=== PATIENT | male | born 1945 | race Caucasian/White ===

== ENCOUNTER 2022-11-10 15:56 | Emergency (ER) | payer MEDICARE, MEDICAID ==
[~2022-11-10] VITALS: Ht 190 cm; Wt 82.0 kg
--- NOTE | 2022-11-10 16:16 | ED Lower Extremity ---
General Chief Complaint: Trauma-Non Activation Stated Complaint: FALL Nursing Triage Note: SEE TRIAGE Source: patient Exam Limitations: no limitations (RACIEL DE LA GARZA APRN) History of Present Illness Date Seen by Provider: Nov 10, 2022 Time Seen by Provider: 16:03 Initial Comments 77-year-old male presents to the ED via EMS from [facility] re[facility] after a fall. States he was trying to go to the bathroom, and suddenly got weak like his body gave out and fell. Denies any dizziness prior to the fall. Denies any loss of consciousness. Denies hitting his head. States he feels okay right now except for the pain in his right hip. Denies cough, fever, chest pain, shortn ess of air, abdominal pain, nausea, vomiting, diarrhea. He states he stays at [facility] and rehab to help take care of his son who had a massive stroke, and who has begun to have behavioral issues. Location Injury Occurred: [place] (RACIEL DE LA GARZA APRN) Allergies and Home Medications Allergies Coded Allergies: No Known Drug Allergies (Unverified , 11/10/22) Patient Home Medication List Home Medication List Reviewed: Yes (RACIEL DE LA GARZA APRN) Review of Systems Constitutional: see HPI (RACIEL DE LA GARZA APRN) Past Pfdikyi-Dwbzdh-Dqutqp Hx Patient Social History Tobacco Use?: No Substance use?: No Alcohol Use?: No Pt feels they are or have been: No (RACIEL DE LA GARZA APRN) Immunizations Up To Date Influenza Vaccine Up-to-Date: Yes; Up-to-Date First/Initial COVID19 Vaccinat: YES Second COVID19 Vaccination Neeraj: YES (RACIEL DE LA GARZA APRN) Past Medical History Surgery/Hospitalization HX: STENTS HEART, A-FIB, WEAKNESS, BIPOLAR,HTN , CAD (RACIEL D ELA GARZA APRN) Physical Exam Vital Signs Vital Signs - First Documented 11/10/22 11/10/22 15:58 17:03 Pulse 55 Resp 20 B/P (MAP) 115/62 (79) Pulse Ox 97 O2 Delivery Room Air (CATRACHITO CONLEY MD) Vital Signs Capillary Refill : Less Than 3 Seconds (RACIEL DE LA GARZA APRN) Height, Weight, BMI Height: '" Weight: lbs. oz. kg; 22.00 BMI Method: General Appearance: WD/WN, no apparent distress HEENT: PERRL/EOMI Neck: supple, normal inspection Cardiovascular: no edema, no gallop, no JVD, no murmur, irregularly irregular Respiratory: lungs clear, normal breath sounds, no respiratory distress, no accessory muscle use Hips: right hip pain, right hip soft tissue tenderness Neurologic/Psychiatric: alert, normal mood/affect, oriented x 3 Skin: normal color, warm/dry (RACIEL DE LA GARZA APRN) Progress/Results/Core Measures Results/Orders Vital Signs/I&O 11/10/22 11/10/22 15:58 17:03 Pulse 55 64 Resp 20 20 B/P (MAP) 115/62 (79) 121/73 Pulse Ox 97 99 O2 Delivery Room Air (CATRACHITO CONLEY MD) Blood Pressure Mean: 79 Progress Progress Note #1: Time: 16:16 Progress Note Patient seen and evaluated, resting comfortably bed, no acute distress. Based on exam and symptoms, concern for right hip fracture. X-ray of the right hip ordered. Progress Note #2: Time: 16:52 Progress Note X-ray reviewed. Negative for acute fracture. Results discussed with patient. Will order one-time dose of [place] and discharge. Discharge instructions and return precautions provided. (RACIEL DE LA GARZA APRN) Departure Impression Primary Impression: Fall Disposition: 01 HOME, SELF-CARE Condition: Stable Departure-Patient Inst. Decision time for Depature: 16:53 (RACIEL DE LA GARZA APRN) Patient Instructions: Preventing Falls in Older Adults Add. Discharge Instructions: Your x-ray did not show a fracture of the hip. You may take Tylenol as needed for pain. We gave you a one-time dose of [place] for pain here, and may make you sleepy. Follow-up with your primary care provider. Return for worsening pain, inability to walk, or any other new, concerning, or worsening symptoms. All discharge instructions reviewed with patient and/or family. Voiced understanding. ATTENDING PHYSICIAN NOTE: I was physically present as attending physician in the emergency department during the care of this patient, but I was not directly involved in the decision making or delivery of care for this patient. (CATRACHITO CONLEY MD) RACIEL DE LA GARZA APRN Nov 10, 2022 16:16 CATRACHITO CONLEY MD Nov 14, 2022 12:40
--- NOTE | 2022-11-10 16:39 | Diagnostic Imaging Report ---
Indication: Right hip pain 2 views of the right hip show no fracture, dislocation or other acute abnormalities. IMPRESSION: Negative right hip Dictated by: Dictated on workstation # [id number]
[2022-11-10] MEDS ORDERED: HYDROcodone/APAP 5 MG/325 MG (LORTAB) TAB PO ONE (17:00)
[2022-11-10 17:03] VITALS: BP 121/73
== END 2022-11-10 17:09 | disposition home or self-care (01) ==
LOC: ER 15:57
DX: M25.551 Pain in right hip (principal); W18.30XA Fall on same level, unspecified, initial encounter
CPT/HCPCS: 73502

== ENCOUNTER 2022-11-11 11:21 | Emergency (ER) | payer MEDICARE, MEDICAID ==
[~2022-11-11] VITALS: Ht 190.5 cm; Wt 82.6 kg
[2022-11-11] MEDS ORDERED: LACTATED RINGERS 1,000 ML IV ONE (11:30)
[2022-11-11 11:50] LABS: BASOPHILS # (AUTO) 0.1 10^3/uL (0.0-0.1); BASOPHILS % (AUTO) 1 % (0-10); EOSINOPHILS # (AUTO) 0.1 10^3/uL (0.0-0.3); EOSINOPHILS % (AUTO) 1 % (0-10); HEMATOCRIT 30 % (40-54); HEMOGLOBIN 9.4 g/dL (13.3-17.7); LYMPHOCYTES # (AUTO) 1.9 10^3/uL (1.0-4.0); LYMPHOCYTES % (AUTO) 16 % (12-44); MEAN CORPUSCULAR HEMOGLOBIN 29 pg (25-34); MEAN CORPUSCULAR HGB CONC 32 g/dL (32-36); MEAN CORPUSCULAR VOLUME 91 fL (80-99); MEAN PLATELET VOLUME 11.7 fL (9.0-12.2); MONOCYTES # (AUTO) 1.7 10^3/uL (0.0-1.0); MONOCYTES % (AUTO) 14 % (0-12); NEUTROPHILS # (AUTO) 7.8 10^3/uL (1.8-7.8); NEUTROPHILS % (AUTO) 68 % (42-75); PLATELET COUNT 173 10^3/uL (130-400); WHITE BLOOD COUNT 11.6 10^3/uL (4.3-11.0)
[2022-11-11 12:07] LABS: ALBUMIN 3.1 GM/DL (3.2-4.5); CHLORIDE 110 MMOL/L (98-107); POTASSIUM 4.1 MMOL/L (3.6-5.0); SODIUM 140 MMOL/L (135-145)
[2022-11-11 12:08] LABS: CALCIUM 8.1 MG/DL (8.5-10.1)
[2022-11-11 12:09] LABS: GLUCOSE 135 MG/DL (70-105); TOTAL PROTEIN 5.9 GM/DL (6.4-8.2)
[2022-11-11 12:10] LABS: CARBON DIOXIDE 21 MMOL/L (21-32)
[2022-11-11 12:13] LABS: ALKALINE PHOSPHATASE 60 U/L (40-136); CREATININE SERUM 1.26 MG/DL (0.60-1.30); GFR ESTIMATED 58
[2022-11-11 12:14] LABS: BUN/CREATININE RATIO 17
[2022-11-11 12:16] LABS: ALANINE AMINOTRANSFERASE < 6 U/L (0-55); MAGNESIUM 2.3 MG/DL (1.6-2.4)
[2022-11-11 12:17] LABS: BILIRUBIN,URINE NEGATIVE (NEGATIVE); CLARITY,URINE CLEAR; COLOR,URINE YELLOW; GLUCOSE, URINE (UA) NEGATIVE (NEGATIVE); KETONES,URINE TRACE (NEGATIVE); LEUKOCYTE ESTERASE ,URINE NEGATIVE (NEGATIVE); NITRITE,URINE NEGATIVE (NEGATIVE); PH,URINE 5.5 (5-9); PROTEIN,URINE TRACE (NEGATIVE)
[2022-11-11 12:25] LABS: BACTERIA,URINE FEW /HPF; SQUAMOUS EPITHELIAL CELL,UR 0-2 /HPF; WBC,URINE RARE /HPF
[2022-11-11] MEDS ORDERED: NS 100 ML (IVPB) BAG IV ONE (12:30)
[2022-11-11] MEDS ORDERED: IOHEXOL 350 MG/ML 100 ML (OMNIPAQUE 350) VIAL IV ONE (12:30)
[2022-11-11] MEDS ORDERED: HOLD METFORMIN - RECEIVED CONTRAST 20 ML VIAL IV SCH (12:30)
--- NOTE | 2022-11-11 12:51 | ED General ---
General Chief Complaint: Dizziness/Syncope Stated Complaint: DIZZINESS Nursing Triage Note: PT TO ROOM 07 VIA [facility] FROM [facility] WITH C/O DIZZYNESS. Source of Information: Patient, EMS, Assisted Records, Old Records Exam Limitations: No Limitations History of Present Illness Date Seen by Provider: Nov 11, 2022 Time Seen by Provider: 11:23 Initial Comments This 77-year-old gentleman presents to the emergency room from the senior living via EMS with complaints of hypotension, lightheadedness, and syncope upon standing. He was caught during his syncopal episode by staff and therefore did not fall or sustain injury. He did have a fall yesterday resulting in right hip injury. He was seen in the emergency room yesterday and evaluated with x-ray. No fractures were identified at that time. He reports persistent pain in the right hip with now a firm swelling on the right lateral hip and buttock region. He reports difficulty walking due to the pain. correction reported diastolic blood pressures were in the 40s. Blood pressure for EMS was 119/48. Heart rate was 78, and rhythm was atrial fibrillation. correction had reported pulse rates as low as the 30s and 40s previously. Blood sugar was 139 for EMS. Rhythm is irregular on the monitor during assessment with EKG reporting ventricular trigeminy. Allergies and Home Medications Allergies Coded Allergies: No Known Drug Allergies (Unverified , 11/10/22) Patient Home Medication List Home Medication List Reviewed: Yes Review of Systems Review of Systems Constitutional: no symptoms reported EENTM: no symptoms reported Respiratory: no symptoms reported Cardiovascular: see HPI Gastrointestinal: no symptoms reported Genitourinary: no symptoms reported Musculoskeletal: see HPI Skin: no symptoms reported Psychiatric/Neurological: No Symptoms Reported Hematologic/Lymphatic: See HPI Immunological/Allergic: no symptoms reported Past Ocboysv-Zuyocz-Yhxwgc Hx Patient Social History Tobacco Use?: No Smoking Status: Never a Smoker Smokeless Tobacco Frequency: Never a User Use of E-Cig and/or Vaping dev: No Use of E-Cig and/or Vaping Cachorro: Never a User Substance use?: No Alcohol Use?: No Pt feels they are or have been: No Immunizations Up To Date First/Initial COVID19 Vaccinat: YES Second COVID19 Vaccination Neeraj: YES Past Medical History Surgery/Hospitalization HX: STENTS HEART, A-FIB, WEAKNESS, BIPOLAR,HTN , CAD Surgeries: Yes Coronary Stent Respiratory: Yes Cardiac: Yes Atrial Fibrillation, Coronary Artery Disease, Heart Attack, High Cholesterol, Hypertension Neurological: No Genitourinary: No Gastrointestinal: No Musculoskeletal: No Endocrine: No HEENT: No Cancer: No Psychosocial: Yes Bipolar Integumentary: No Physical Exam Vital Signs Vital Signs - First Documented 11/11/22 11:21 Temp 36.7 Pulse 64 Resp 15 B/P (MAP) 116/53 (74) O2 Delivery Room Air Capillary Refill : Less Than 3 Seconds Height, Weight, BMI Height: '" Weight: lbs. oz. kg; 22.00 BMI Method: General Appearance: No Apparent Distress, WD/WN HEENT: PERRL/EOMI, Normal ENT Inspection Neck: Normal Inspection Respiratory: Lungs Clear, Normal Breath Sounds, No Accessory Muscle Use Cardiovascular: No Edema, No Murmur, Irregularly Irregular Gastrointestinal: Non Tender, Soft Extremity: Other (Firm swelling in the right proximal posterior thigh and buttock region with tenderness. No pain with rotation of the hips) Neurologic/Psychiatric: Alert, Oriented x3, No Motor/Sensory Deficits, Normal Mood/Affect Skin: Normal Color, Warm/Dry Progress/Results/Core Measures Suspected Sepsis SIRS Temperature: Pulse: 64 Respiratory Rate: 15 Laboratory Tests 11/11/22 11:39: White Blood Count 11.6H Blood Pressure 116 /53 Mean: 74 Laboratory Tests 11/11/22 11:39: Creatinine 1.26, Platelet Count 173, Total Bilirubin < 1.0 Results/Orders Lab Results Laboratory Tests Test 11/11/22 11:39 11/11/22 12:09 Range/Units White Blood Count 11.6 H 4.3-11.0 10^3/uL Red Blood Count 3.24 L 4.30-5.52 10^6/uL Hemoglobin 9.4 L 13.3-17.7 g/dL Hematocrit 30 L 40-54 % Mean Corpuscular Volume 91 80-99 fL Mean Corpuscular Hemoglobin 29 25-34 pg Mean Corpuscular Hemoglobin Concent 32 32-36 g/dL Red Cell Distribution Width 15.1 H 10.0-14.5 % Platelet Count 173 130-400 10^3/uL Mean Platelet Volume 11.7 9.0-12.2 fL Immature Granulocyte % (Auto) 0 % Neutrophils (%) (Auto) 68 42-75 % Lymphocytes (%) (Auto) 16 12-44 % Monocytes (%) (Auto) 14 H 0-12 % Eosinophils (%) (Auto) 1 0-10 % Basophils (%) (Auto) 1 0-10 % Neutrophils # (Auto) 7.8 1.8-7.8 10^3/uL Lymphocytes # (Auto) 1.9 1.0-4.0 10^3/uL Monocytes # (Auto) 1.7 H 0.0-1.0 10^3/uL Eosinophils # (Auto) 0.1 0.0-0.3 10^3/uL Basophils # (Auto) 0.1 0.0-0.1 10^3/uL Immature Granulocyte # (Auto) 0.0 0.0-0.1 10^3/uL Sodium Level 140 135-145 MMOL/L Potassium Level 4.1 3.6-5.0 MMOL/L Chloride Level 110 H 98-107 MMOL/L Carbon Dioxide Level 21 21-32 MMOL/L Anion Gap 9 5-14 MMOL/L Blood Urea Nitrogen 22 H 7-18 MG/DL Creatinine 1.26 0.60-1.30 MG/DL Estimat Glomerular Filtration Rate 58 BUN/Creatinine Ratio 17 Glucose Level 135 H 70-105 MG/DL Calcium Level 8.1 L 8.5-10.1 MG/DL Corrected Calcium 8.8 8.5-10.1 MG/DL Magnesium Level 2.3 1.6-2.4 MG/DL Total Bilirubin < 1.0 0.1-1.0 MG/DL Aspartate Amino Transf (AST/SGOT) 14 5-34 U/L Alanine Aminotransferase (ALT/SGPT) < 6 0-55 U/L Alkaline Phosphatase 60 40-136 U/L Total Protein 5.9 L 6.4-8.2 GM/DL Albumin 3.1 L 3.2-4.5 GM/DL Valproic Acid (Depakene) Level 32.2 L 50.0-100.0 UG/ML Urine Color YELLOW Urine Clarity CLEAR Urine pH 5.5 5-9 Urine Specific [place] >=1.030 1.016-1.022 Urine Protein TRACE H NEGATIVE Urine Glucose (UA) NEGATIVE NEGATIVE Urine Ketones TRACE H NEGATIVE Urine Nitrite NEGATIVE NEGATIVE Urine Bilirubin NEGATIVE NEGATIVE Urine Urobilinogen 0.2 < = 1.0 MG/DL Urine Leukocyte Esterase NEGATIVE NEGATIVE Urine RBC (Auto) NEGATIVE NEGATIVE Urine RBC NONE /HPF Urine WBC RARE /HPF Urine Squamous Epithelial Cells 0-2 /HPF Urine Crystals NONE /LPF Urine Bacteria FEW H /HPF Urine Casts PRESENT /LPF Urine Hyaline Casts 2-5 H /LPF Urine Mucus MODERATE H /LPF Urine Culture Indicated NO My Orders Orders - CATRACHITO CONLEY MD Cbc With Automated Diff (11/11/22 11:30) Comprehensive Metabolic Panel (11/11/22 11:30) Magnesium (11/11/22 11:30) Ekg Tracing (11/11/22 11:30) Monitor-Rhythm Ecg Trace Only (11/11/22 11:30) Ed Iv/Invasive Line Start (11/11/22 11:30) Lactated Ringers (Lr 1000 Ml Iv Solution (11/11/22 11:30) Ua Culture If Indicated (11/11/22 12:00) Ct Pelvis W (11/11/22 12:18) Iohexol Injection (Omnipaque 350 Mg/Ml 1 (11/11/22 12:30) Received Contrast (Hold Metformin- Contr (11/11/22 12:30) Ns (Ivpb) (Sodium Chloride 0.9% Ivpb Bag (11/11/22 12:30) Valproic Acid (11/11/22 12:31) Ns Iv 500 Ml (Sodium Chloride 0.9%) (11/11/22 13:30) Ns Iv 500 Ml (Sodium Chloride 0.9%) (11/11/22 15:45) Hydrocodone/Apap 5/325 Tablet (Lortab 5 (11/11/22 17:00) Medications Given in ED Current Medications Medications Dose Ordered Sig/Orquidea Route Start Time Stop Time Status Last Admin Dose Admin Acetaminophen/ Hydrocodone Bitart 1 ea ONCE ONCE PO 11/11/22 17:00 11/11/22 17:01 DC 11/11/22 16:58 1 EA Iohexol 100 ml ONCE ONCE IV 11/11/22 12:30 11/11/22 12:31 DC 11/11/22 12:32 80 ML Lactated Ringer's 1,000 ml @ 0 mls/hr Q0M ONCE IV 11/11/22 11:30 11/11/22 11:32 DC 11/11/22 11:38 999 MLS/HR Sodium Chloride 100 ml ONCE ONCE IV 11/11/22 12:30 11/11/22 12:31 DC 11/11/22 12:32 80 ML Sodium Chloride 500 ml @ 0 mls/hr Q0M ONCE IV 11/11/22 13:30 11/11/22 13:31 DC 11/11/22 13:48 999 MLS/HR Sodium Chloride 500 ml @ 0 mls/hr Q0M ONCE IV 11/11/22 15:45 11/11/22 15:46 DC 11/11/22 15:54 0 MLS/HR Vital Signs/I&O 11/11/22 11/11/22 11/11/22 11/11/22 11:21 13:28 15:14 17:07 Temp 36.7 Pulse 64 62 66 63 72 90 87 97 111 88 Resp 15 B/P (MAP) 116/53 (74) 128/92 (104) 146/71 (96) 115/45 (68) 94/55 (68) 105/59 (74) 111/55 (73) 101/40 (60) 99/52 (68) 113/54 (73) O2 Delivery Room Air 11/11/22 18:05 Temp 36.7 Pulse 88 Resp 15 B/P (MAP) 113/54 O2 Delivery Room Air Capillary Refill : Less Than 3 Seconds Blood Pressure Mean: 74 Progress Note #1: Time: 13:35 Progress Note Patient was interviewed and examined. He was alert and oriented. There was concern for possible hematoma and/or occult fracture of the right hip or pelvis. Labs were obtained. Anemia with hemoglobin of 9.4 was noted. No baseline is available on his record. Because of concern for hematoma and possible active internal hemorrhaging into this hematoma, CT of the pelvis with contrast was obtained. Large hematoma was confirmed. There was no active extravasation noted. Patient takes both Eliquis and Brilinta and is therefore at high risk for bleeding events. He received a liter of LR. Orthostatic blood pressures were checked afterwards. He was still symptomatic and hypotensive upon sitting and standing. A 500 mL bolus of saline will now be given and we will recheck. Heart rhythm is atrial fibrillation. Rate is controlled. Progress Note #2: Progress Note After the 500 mL normal saline bolus, patient's orthostatic blood pressures were marginal. His lightheadedness had resolved. To ensure best results and least likelihood of rebound, an additional bolus of normal saline 500 mL was ordered. Orthostatic blood pressure was again checked after the completion of the second 500 mL bolus. Blood pressure was normal and he was asymptomatic. Hydrocodone was given for postoperative pain. Patient did have persistent trigeminy, but this did not appear to affect his perfusion at the time of discharge. Follow-up with cardiology was recommended. Patient was discharged back to the senior living in stable and improved condition. See discharge instructions for further discussion. ECG Initial ECG Impression Date: Nov 11, 2022 Initial ECG Impression Time: 11:36 Initial ECG Rate: 57 Comment Sinus rhythm with ventricular trigeminy. No ST elevation or depression. No abnormal intervals or axis deviation. Diagnostic Imaging Diagonstic Imaging: CT Plain Films/CT/US/NM/MRI: pelvis Comments CT of the pelvis was viewed by me. I appreciated no fractures in the pelvis or the proximal right femur. There does appear to be a large hematoma without active extravasation associated with the area of fullness and induration on physical exam. Radiologist's report was also reviewed and confirmed this interpretation of imaging. See report below: NAME: JAXSON GORDON [facility] REC#: [id number] PT STATUS: REG ER : 1945 PHYSICIAN: CATRACHITO CONLEY MD ADMIT DATE: 11/11/22/ER Draft Date of Exam:11/11/22 CT PELVIS W PROCEDURE: CT pelvis with contrast. TECHNIQUE: Oral and intravenous contrast were administered with pelvic CT performed. Auto Exposure Controls were utilized during the CT exam to meet ALARA standards for radiation dose reduction. INDICATION: Right hip hematoma. COMPARISON: CT abdomen and pelvis from 07/22/2022. FINDINGS: There is a large intramuscular hematoma within the right gluteus jenn. This measures 12 x 7 x 4 cm. There is no contrast blush within the hematoma to suggest active hemorrhage. No additional hematomas are noted. No acute fracture in the pelvis or proximal femurs. 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 Unchanged prostamegaly. IMPRESSION: 1. Large intramuscular hematoma within the right gluteus jenn. No active hemorrhage associated with the large hematoma. 2. Prostamegaly. 3. No fracture in the right proximal femur or pelvis. Dictated on workstation # [id number] Dict: 11/11/22 1244 Trans: 11/11/22 1251 CVB [id number] Interpreted by: DA THAYER MD Departure Impression Primary Impression: Traumatic hematoma of buttock Qualified Codes: S30.0XXA - Contusion of lower back and pelvis, initial encounter Additional Impressions: Hypotension Qualified Codes: I95.89 - Other hypotension; E86.1 - Hypovolemia Anemia Qualified Codes: D64.9 - Anemia, unspecified Anticoagulated Hypovolemia Katja Disposition: HOME, SELF-CARE Condition: Improved Departure-Patient Inst. Decision time for Depature: 13:13 Referrals: NO,LOCAL PHYSICIAN (PCP/Family) Primary Care Physician Patient Instructions: HEMATOMA Add. Discharge Instructions: Drink plenty of clear liquids to stay well-hydrated. Your low blood pressure is likely due to loss of blood into the hematoma in your buttock as well as insufficient intake of liquids. Please have your primary care provider check your hemoglobin again early next week to monitor your anemia. Skip tonight's dose of Eliquis. Resume Eliquis again tomorrow. Until long-term stability of your blood pressure and functionality is determined, do not get up without assistance. Get up slowly and take your time. Return to the ER if there are any worsening of symptoms. You had a heart rhythm in the emergency room called to katja. Please follow-up with your gis software engineer as soon as possible for further evaluation. Also follow-up with your primary care provider soon as possible. All discharge instructions reviewed with patient and/or family. Voiced understanding. Copy Copies To 1: FABIO LARSEN JOSHUA T MD Nov 11, 2022 12:50
[2022-11-11 12:55] LABS: BILIRUBIN,TOTAL < 1.0 MG/DL (0.1-1.0)
[2022-11-11 13:28] VITALS: BP_SYST 101; BP_SYST 128; BP_SYST 94; BP_DIAS 40; BP_DIAS 55; BP_DIAS 92
[2022-11-11] MEDS ORDERED: NS IV 500 ML 500 ML IV ONE ×2 (13:30→15:45)
[2022-11-11 15:14] VITALS: BP_SYST 105; BP_SYST 146; BP_SYST 99; BP_DIAS 52; BP_DIAS 59; BP_DIAS 71
[2022-11-11] MEDS ORDERED: HYDROcodone/APAP 5 MG/325 MG (LORTAB) TAB PO ONE (17:00)
[2022-11-11 17:07] VITALS: BP_SYST 111; BP_SYST 113; BP_SYST 115; BP_DIAS 45; BP_DIAS 54; BP_DIAS 55
[2022-11-11 18:05] VITALS: BP 113/54
== END 2022-11-11 18:11 | disposition home or self-care (01) ==
LOC: EDUNIT# 11:21 → ER 11:23
DX: S30.0XXA Contusion of lower back and pelvis, initial encounter (principal); I95.9 Hypotension, unspecified; D64.9 Anemia, unspecified; E86.1 Hypovolemia; R00.8 Other abnormalities of heart beat; I48.91 Unspecified atrial fibrillation; Z79.01 Long term (current) use of anticoagulants; W19.XXXA Unspecified fall, initial encounter
CPT/HCPCS: 36415; 72193; 80053; 80164; 81000; 83735; 85025; 93005; 93041; 96360; 96361

== ENCOUNTER 2023-02-21 01:13 | Emergency (ER) | payer MEDICARE, MEDICAID ==
[~2023-02-21] VITALS: Ht 190 cm; Wt 75.0 kg
[2023-02-21] MEDS ORDERED: OXYMETAZOLINE (AFRIN) 0.05% NA 30 ML BTL ONE (01:19)
--- NOTE | 2023-02-21 01:27 | ED EENT ---
History of Present Illness General Chief Complaint: Nasal Problems Stated Complaint: NOSE BLEED Nursing Triage Note: PT BROUGHT IN BY EMS AFTER HAVING A NOSEBLEED X 1 HOUR. PT ON BLOODTHINNERS. BLEEDING MINIMAL AT TIME OF ARRIVAL, NOSE CLAMP PLACED AT TRIAGE. PT DENIES ANY OTHER COMPLAINTS AT THIS TIME. Source: patient, EMS Exam Limitations: no limitations History of Present Illness Date Seen by Provider: Feb 21, 2023 Time Seen by Provider: 01:18 Initial Comments 77-year-old male presents to the emergency department today for epistaxis. Symptoms started at 9 PM. He used Afrin just prior to arrival which has not seemed to help. He has Pressure with minimal relief. He is on Eliquis. No known trauma. All other systems reviewed and negative except documented per HPI. Voice recognition software was used to help create this chart Allergies and Home Medications Allergies Coded Allergies: No Known Drug Allergies (Unverified , 11/10/22) Patient Home Medication List Home Medication List Reviewed: Yes Review of Systems Review of Systems Constitutional: see HPI Past Qgajitm-Xijpnj-Qqjhsk Hx Patient Social History Tobacco Use?: No Substance use?: No Alcohol Use?: No Pt feels they are or have been: No Immunizations Up To Date First/Initial COVID19 Vaccinat: YES Second COVID19 Vaccination Neeraj: YES Past Medical History Surgery/Hospitalization HX: STENTS HEART, A-FIB, WEAKNESS, BIPOLAR,HTN , CAD Surgeries: Yes Coronary Stent Respiratory: Yes Cardiac: Yes Atrial Fibrillation, Coronary Artery Disease, Heart Attack, High Cholesterol, Hypertension Neurological: No Genitourinary: No Gastrointestinal: No Musculoskeletal: No Endocrine: No HEENT: No Cancer: No Psychosocial: Yes Bipolar Integumentary: No Physical Exam Vital Signs Vital Signs - First Documented 02/21/23 01:14 Temp 36.0 Pulse 50 Resp 18 B/P (MAP) 168/67 (100) Pulse Ox 97 O2 Delivery Room Air Height, Weight, BMI Height: '" Weight: lbs. oz. kg; 20.00 BMI Method: General Appearance: WD/WN, no apparent distress Eyes: bilateral eye normal inspection, bilateral eye PERRL, bilateral eye EOMI Ears: bilateral ear auricle normal, bilateral ear canal normal, bilateral ear TM normal Nose: active bleeding (Right nare, appears to be posterior. No septal hematoma.) Mouth/Throat: normal mouth inspection, pharynx normal Neck: non-tender Cardiovascular: regular rate, rhythm, no murmur Respiratory: chest non-tender, normal breath sounds Progress/Results/Core Measures Results/Orders My Orders Orders - TATE MAN DO Oxymetazoline 0.05% Nasal [place] (Afrin 0. (02/21/23 09:00) Oxymetazoline 0.05% Nasal [place] (Afrin 0. (02/21/23 01:19) Oxymetazoline 0.05% Nasal [place] (Afrin 0. (02/21/23 01:30) Vital Signs/I&O 02/21/23 01:14 Temp 36.0 Pulse 50 Resp 18 B/P (MAP) 168/67 (100) Pulse Ox 97 O2 Delivery Room Air Blood Pressure Mean: 100 Departure Communication (Admissions) Patient is hemodynamically stable. Bleeding resolved with pressure and Afrin alone. Advised not to blow his nose for the next 72 hours, do not take Eliquis for 2 days. Discharged in stable condition. Impression Primary Impression: Epistaxis Disposition: 01 HOME, SELF-CARE Condition: Stable Departure-Patient Inst. Referrals: NO,LOCAL PHYSICIAN (PCP/Family) Primary Care Physician Patient Instructions: Nosebleeds ED Add. Discharge Instructions: Do not blow your nose for the next 3 days. If you have a recurrence of bleeding please use Afrin aggressively in both sides of your nose and replace the clamp. Return to the emergency department if it does not stop bleeding after an hour. Stop taking your Eliquis for the next 48 hours. Return to the emergency department for any severe concerns. Follow-up with your primary doctor for any nonemergent needs. All discharge instructions reviewed with patient and/or family. Voiced understanding. TATE MAN DO Feb 21, 2023 01:27
[2023-02-21] MEDS ORDERED: OXYMETAZOLINE (AFRIN) 0.05% NA 30 ML BTL SCH ×2 (01:30→09:00)
[2023-02-21 02:08] VITALS: BP 183/82
== END 2023-02-21 02:34 | disposition home or self-care (01) ==
LOC: EDUNIT# 01:13 → ER 01:14
DX: R04.0 Epistaxis (principal); Z79.01 Long term (current) use of anticoagulants
CPT/HCPCS: 99283